=== PATIENT | female | born 1980 | race Caucasian/White ===

== ENCOUNTER 2018-12-12 20:57 | Emergency (ER) | payer SELFPAY ==
[~2018-12-12] VITALS: Ht 162.6 cm; Wt 66.0 kg
[2018-12-12] MEDS ORDERED: HYDROCODONE/ACETAMINOPHEN 5/325MG TABLET PO ONE (22:30)
[2018-12-12 22:37] VITALS: BP 159/100
== END 2018-12-12 23:02 | disposition home or self-care (01) ==
LOC: ER 20:57
DX: S13.9XXA Sprain of joints and ligaments of unspecified parts of neck, initial encounter (principal); S33.5XXA Sprain of ligaments of lumbar spine, initial encounter; V43.62XA Car passenger injured in collision with other type car in traffic accident, initial encounter; Y93.89 Activity, other specified; Y92.488 Other paved roadways as the place of occurrence of the external cause
CPT/HCPCS: 99283